=== PATIENT | male | born 1955 | race Two or more races ===

== ENCOUNTER 2024-09-17 10:01 | Inpatient (IN) | payer OTHER ==
[~2024-09-17] VITALS: Ht 175.3 cm; Wt 92.5 kg
[2024-09-17 10:38] VITALS: BP 160/96
[2024-09-23] MEDS ORDERED: LIDOCAINE HCL 1%/EPINEPHRINE 20ML VIAL IJ ONE (11:12)
[2024-09-23] MEDS ORDERED: BUPIVACAINE HCL/Mpf 0.5% 10ML VIAL ONE (11:12)
[2024-09-23] MEDS ORDERED: CHLORHEXIDINE GLUCONATE 120 ML BOTTLE TOP ONE (12:28)
[2024-09-23] MEDS ORDERED: CEFTRIAXONE SODIUM 2,000 MG VIAL IV SCH (13:45)
[2024-09-23] MEDS ORDERED: METRONIDAZOLE/SODIUM CHLORIDE 500 MG/100 ML PIGGYBACK IV SCH (13:45)
[2024-09-23] MEDS ORDERED: RINGERS SOLUTION,LACTATED 1,000 ML IV SCH (16:45)
[2024-09-23] MEDS ORDERED: MORPHINE SULFATE 4 MG/ML CARTRIDGE IV PRN (16:45)
[2024-09-23] MEDS ORDERED: ONDANSETRON HCL 2 MG/ML VIAL IV PRN (16:45)
[2024-09-23] MEDS ORDERED: DEXTROSE 50 % IN WATER 0.5 G/ML VIAL IV PRN (16:45)
[2024-09-23] MEDS ORDERED: METOCLOPRAMIDE HCL 5 MG/ML VIAL IV SCH (17:00)
[2024-09-23] MEDS ORDERED: SUGAMMADEX SODIUM 200 MG/2 ML VIAL IV ONE (17:09)
[2024-09-23] MEDS ORDERED: ACETAMINOPHEN 500 MG GEL..CAP PO SCH (20:00)
[2024-09-23 20:16] LABS: BASO % 0.3 % (0.1-1.2); EOS # 0.02 (0.04-0.54); EOS % 0.2 % (0.7-7.0); HEMATOCRIT 39.1 % (40.1-51.0); HEMOGLOBIN 12.6 g/dL (13.7-17.5); LYMPH # 0.92 (1.18-3.74); LYMPH % 7.3 % (19.3-53.1); MEAN CORPUSCULAR HEMOGLOBIN 29.4 pg (25.6-32.2); MONO # 1.14 (0.24-0.82); NEUT % 82.7 % (34.0-71.1); PLATELET COUNT 216 K/uL (163-369); RED BLOOD COUNT 4.29 M/uL (4.63-6.08); RED CELL DISTRIBUTION WIDTH 15.6 % (11.6-14.4)
[2024-09-23 20:26] VITALS: BP 125/86; O2SAT 96
[2024-09-23] MEDS ORDERED: FAMOTIDINE/PF 20 MG/2 ML VIAL IV PUSH SCH (21:00)
[2024-09-24 02:28] VITALS: BP 103/69; O2SAT 95
[2024-09-24 08:00] VITALS: BP 111/77; O2SAT 95
[2024-09-24 08:36] LABS: BASO % 0.1 % (0.1-1.2); HEMATOCRIT 41.6 % (40.1-51.0); HEMOGLOBIN 13.6 g/dL (13.7-17.5); LYMPH # 0.99 (1.18-3.74); LYMPH % 7.8 % (19.3-53.1); MEAN CORPUSCULAR HEMOGLOBIN 28.9 pg (25.6-32.2); MONO # 1.46 (0.24-0.82); MONO % 11.5 % (4.7-12.5); NEUT # 10.21 (1.56-6.13); NEUT % 80.2 % (34.0-71.1); PLATELET COUNT 227 K/uL (163-369); RED CELL DISTRIBUTION WIDTH 15.4 % (11.6-14.4)
[2024-09-24 09:29] LABS: ALBUMIN 3.1 gm/dL (3.4-5.0); CALCIUM 8.3 mg/dL (8.5-10.1); CREATININE SERUM 2.58 mg/dL (0.70-1.30); GFR 24.67
[2024-09-24 09:44] LABS: POTASSIUM 6.36 mEq/L (3.5-5.1)
[2024-09-24 09:45] LABS: PHOSPHOROUS 1.8 mg/dL (2.5-4.9)
[2024-09-24] MEDS ORDERED: SUGAMMADEX SODIUM 200 MG/2 ML VIAL IV ONE (13:45)
[2024-09-24] MEDS ORDERED: 0.9 % SODIUM CHLORIDE 1,000 ML IV SCH (14:45)
[2024-09-24 16:00] VITALS: BP 131/83; O2SAT 95
[2024-09-24 16:12] LABS: BASO % 0.2 % (0.1-1.2); HEMATOCRIT 38.1 % (40.1-51.0); HEMOGLOBIN 12.4 g/dL (13.7-17.5); LYMPH # 1.46 (1.18-3.74); MEAN CORPUSCULAR HEMOGLOBIN 28.6 pg (25.6-32.2); MONO # 1.67 (0.24-0.82); NEUT # 10.01 (1.56-6.13); NEUT % 75.8 % (34.0-71.1); PLATELET COUNT 180 K/uL (163-369); RED BLOOD COUNT 4.34 M/uL (4.63-6.08); RED CELL DISTRIBUTION WIDTH 15.3 % (11.6-14.4)
[2024-09-24 16:15] LABS: MONO % 12.6 % (4.7-12.5)
[2024-09-24 16:48] LABS: CALCIUM 8.5 mg/dL (8.5-10.1); CREATININE SERUM 3.33 mg/dL (0.70-1.30); GFR 18.38; POTASSIUM 5.16 mEq/L (3.5-5.1)
[2024-09-24] MEDS ORDERED: ENOXAPARIN SODIUM 40 MG/0.4 ML SYRINGE SUBCUTANEO SCH (17:00)
[2024-09-24 20:13] LABS: URINE APPEARANCE Turbid; URINE BILIRRUBIN Small (NEGATIVE); URINE BLOOD Small; URINE COLOR Red; URINE GLUCOSE Negative (NEGATIVE); URINE KETONE Negative (NEGATIVE); URINE LEUKOCYTE Moderate; URINE NITRATE Positive; URINE UROBILINOGEN 0.2 E.U./dl
[2024-09-24 20:17] LABS: URINE BACTERIA 397.7 uL (0.0-1933); URINE EPITHELIAL CELLS 23.2 uL (0.0-38.8)
[2024-09-24 20:39] LABS: URINE PROTEIN 100 (NEGATIVE); URINE RBC > 10558.9 uL (0.0-20.8)
[2024-09-24 20:47] LABS: URINE YEAST MANY /hpf
[2024-09-25 01:00] VITALS: BP 130/85; O2SAT 96
[2024-09-25 06:14] LABS: BASO % 0.3 % (0.1-1.2); HEMATOCRIT 34.7 % (40.1-51.0); HEMOGLOBIN 11.4 g/dL (13.7-17.5); LYMPH # 1.34 (1.18-3.74); MEAN CORPUSCULAR HEMOGLOBIN 28.8 pg (25.6-32.2); MONO # 1.56 (0.24-0.82); NEUT # 9.22 (1.56-6.13); NEUT % 75.5 % (34.0-71.1); PLATELET COUNT 170 K/uL (163-369); RED BLOOD COUNT 3.96 M/uL (4.63-6.08); RED CELL DISTRIBUTION WIDTH 15.4 % (11.6-14.4)
[2024-09-25 06:40] LABS: ALBUMIN 2.7 gm/dL (3.4-5.0); BILIRUBIN TOTAL 1.39 mg/dL (0.3-1.2); CALCIUM 8.2 mg/dL (8.5-10.1); CREATININE SERUM 2.48 mg/dL (0.70-1.30); GFR 25.82; GLOBULINA 4.1 G/DL (2.4-3.5); POTASSIUM 5.42 mEq/L (3.5-5.1); TOTAL PROTEIN 6.8 gm/dL (6.4-8.2)
[2024-09-25 06:59] LABS: MONO % 12.8 % (4.7-12.5)
[2024-09-25 08:00] VITALS: BP 160/97; O2SAT 94
[2024-09-25] MEDS ORDERED: ENOXAPARIN SODIUM 40 MG/0.4 ML SYRINGE SUBCUTANEO SCH (09:00)
[2024-09-25 16:00] VITALS: BP 169/100; O2SAT 95
[2024-09-25] MEDS ORDERED: hydrALAZINE HCL 20 MG VIAL IV PRN (19:30)
[2024-09-25] MEDS ORDERED: MORPHINE SULFATE 4 MG/ML CARTRIDGE IV PRN (20:00)
[2024-09-26] VITALS: BP 133/83; O2SAT 95
[2024-09-26 07:40] LABS: BASO % 0.6 % (0.1-1.2); EOS # 0.04 (0.04-0.54); EOS % 0.4 % (0.7-7.0); HEMATOCRIT 31.3 % (40.1-51.0); HEMOGLOBIN 10.3 g/dL (13.7-17.5); LYMPH # 1.54 (1.18-3.74); MEAN CORPUSCULAR HEMOGLOBIN 29.3 pg (25.6-32.2); MONO # 1.21 (0.24-0.82); NEUT # 8.03 (1.56-6.13); NEUT % 73.3 % (34.0-71.1); PLATELET COUNT 163 K/uL (163-369); RED BLOOD COUNT 3.51 M/uL (4.63-6.08); RED CELL DISTRIBUTION WIDTH 15.5 % (11.6-14.4)
[2024-09-26 08:00] VITALS: BP 147/90; O2SAT 95
[2024-09-26 08:07] LABS: ALBUMIN 2.5 gm/dL (3.4-5.0); BILIRUBIN TOTAL 2.18 mg/dL (0.3-1.2); CALCIUM 8.2 mg/dL (8.5-10.1); CREATININE SERUM 1.13 mg/dL (0.70-1.30); GFR 63.97; POTASSIUM 4.73 mEq/L (3.5-5.1); TOTAL PROTEIN 6.5 gm/dL (6.4-8.2)
[2024-09-26 15:56] VITALS: BP 157/87; O2SAT 95
[2024-09-27 00:36] VITALS: BP 125/79; O2SAT 94
[2024-09-27 08:00] VITALS: BP 141/86; O2SAT 95
[2024-09-27 16:00] VITALS: BP 160/98; O2SAT 97
[2024-09-28 00:53] VITALS: BP 123/80; O2SAT 95
[2024-09-28 08:50] VITALS: BP 134/93; O2SAT 95
[2024-09-28 09:32] LABS: CALCIUM 8.2 mg/dL (8.5-10.1); CREATININE SERUM 0.92 mg/dL (0.70-1.30); GFR 81.1; MAGNESIUM 2.2 mg/dL (1.8-2.4); PHOSPHOROUS 2.5 mg/dL (2.5-4.9); POTASSIUM 4.5 mEq/L (3.5-5.1)
[2024-09-28 09:35] LABS: BILIRUBIN TOTAL 2.61 mg/dL (0.3-1.2); BILIRUBIN,CONJUGATED 1.68 mg/dL (0.0-0.2); BILIRUBIN,UNCONJUGATED 0.93 mg/dL (0.0-0.6)
[2024-09-28 10:10] LABS: BASO % 1.1 % (0.1-1.2); EOS # 0.55 (0.04-0.54); EOS % 5.9 % (0.7-7.0); HEMATOCRIT 32.8 % (40.1-51.0); HEMOGLOBIN 10.7 g/dL (13.7-17.5); LYMPH # 1.67 (1.18-3.74); MEAN CORPUSCULAR HEMOGLOBIN 28.7 pg (25.6-32.2); MONO # 1.07 (0.24-0.82); MONO % 11.5 % (4.7-12.5); NEUT # 5.59 (1.56-6.13); NEUT % 60.1 % (34.0-71.1); PLATELET COUNT 237 K/uL (163-369); RED BLOOD COUNT 3.73 M/uL (4.63-6.08)
[2024-09-28 16:00] VITALS: BP 149/92; O2SAT 97
[2024-09-29] VITALS: BP 131/86; O2SAT 95
[2024-09-29 07:05] LABS: EOS # 1.06 (0.04-0.54); EOS % 11.1 % (0.7-7.0); HEMATOCRIT 30.6 % (40.1-51.0); HEMOGLOBIN 10.1 g/dL (13.7-17.5); LYMPH # 2.02 (1.18-3.74); LYMPH % 21.1 % (19.3-53.1); MEAN CORPUSCULAR HEMOGLOBIN 28.9 pg (25.6-32.2); MONO # 0.94 (0.24-0.82); MONO % 9.8 % (4.7-12.5); NEUT % 51.2 % (34.0-71.1); PLATELET COUNT 224 K/uL (163-369); RED CELL DISTRIBUTION WIDTH 14.9 % (11.6-14.4)
[2024-09-29 07:22] LABS: ALBUMIN 2.3 gm/dL (3.4-5.0); BILIRUBIN TOTAL 2.15 mg/dL (0.3-1.2); BILIRUBIN,CONJUGATED 1.2 mg/dL (0.0-0.2); BILIRUBIN,UNCONJUGATED 0.95 mg/dL (0.0-0.6); MAGNESIUM 1.9 mg/dL (1.8-2.4); PHOSPHOROUS 2.6 mg/dL (2.5-4.9); TOTAL PROTEIN 6.1 gm/dL (6.4-8.2)
[2024-09-29 08:50] VITALS: BP 152/89; O2SAT 97
[2024-09-29 16:12] VITALS: BP 164/100; O2SAT 98
[2024-09-29 18:07] VITALS: BP 158/103; O2SAT 97
[2024-09-29] MEDS ORDERED: hydrALAZINE HCL 20 MG VIAL IV STA (20:29)
[2024-09-29] MEDS ORDERED: hydrALAZINE HCL 20 MG VIAL ONE (21:08)
[2024-09-30 01:16] VITALS: BP 124/86; O2SAT 98
[2024-09-30] MEDS ORDERED: hydrALAZINE HCL 20 MG VIAL IV SCH (05:00)
[2024-09-30 08:39] VITALS: BP 150/99; O2SAT 95
[2024-09-30] MEDS ORDERED: FAMOtidine 20 MG TABLET PO SCH (09:00)
== END 2024-09-30 11:45 | disposition home or self-care (01) | DRG 329 ==
LOC: SURG 09-23 07:00 → SURH 09-23 07:44 → O/R 09-23 07:44 → SURG 09-23 11:45 → SURH 09-23 18:14
PROVIDERS: Internal Medicine; Internal Medicine Geriatric Medicine; ADMIT Colon & Rectal Surgery; ATTEND Colon & Rectal Surgery
PROC: BW21YZZ Computerized Tomography (CT Scan) of Abdomen and Pelvis using Other Contrast (ICD-10-PCS; 2024-09-29)
PROC: 0DTF0ZZ Resection of Right Large Intestine, Open Approach (ICD-10-PCS; principal; 2024-09-30)
PROC: 07BB0ZZ Excision of Mesenteric Lymphatic, Open Approach (ICD-10-PCS; 2024-09-30)
PROC: 07BC0ZZ Excision of Pelvis Lymphatic, Open Approach (ICD-10-PCS; 2024-09-30)
PROC: 0TN70ZZ Release Left Ureter, Open Approach (ICD-10-PCS; 2024-09-30)
PROC: 0TQ70ZZ Repair Left Ureter, Open Approach (ICD-10-PCS; 2024-09-30)
PROC: 0DQ80ZZ Repair Small Intestine, Open Approach (ICD-10-PCS; 2024-09-30)
PROC: 0DNW0ZZ Release Peritoneum, Open Approach (ICD-10-PCS; 2024-09-30)
PROC: 0DBE0ZZ Excision of Large Intestine, Open Approach (ICD-10-PCS; 2024-09-30)
PROC: 0DBP0ZZ Excision of Rectum, Open Approach (ICD-10-PCS; 2024-09-30)
PROC: 0T9700Z Drainage of Left Ureter with Drainage Device, Open Approach (ICD-10-PCS; 2024-09-30)
PROC: 0DJD8ZZ Inspection of Lower Intestinal Tract, Via Natural or Artificial Opening Endoscopic (ICD-10-PCS; 2024-09-30)
DX: C18.7 Malignant neoplasm of sigmoid colon (principal); K68.2 Retroperitoneal fibrosis; N17.9 Acute kidney failure, unspecified; D12.2 Benign neoplasm of ascending colon; K66.0 Peritoneal adhesions (postprocedural) (postinfection); R59.0 Localized enlarged lymph nodes; Z53.31 Laparoscopic surgical procedure converted to open procedure